=== PATIENT | female | born 1990 | race Caucasian/White ===

== ENCOUNTER 2017-06-25 16:05 | Emergency (ER) | payer OTHER ==
--- NOTE | 2017-06-28 12:08 | ER ---
ADMIT: 06/25/2017 RM/LOC: ER [facility] MR#: [id number] [address] [facility] [address] [place], [place] [id number] NEERAJ ALEXANDER [address] [facility] [address] [place] [address] Emergency Room Report SEX: F AGE: 26 : 1990 DATE: 06/25/2017 HISTORY OF PRESENT ILLNESS: The patient is a 26-year-old presents to emergency room complaining of blurry vision and dizziness. She says she has just gone to the doctor's office, and her vision was fine. She says she could not tell if she had turned the light on or off in the house. No headache at the time. She does have a very extensive history of anxiety and has had multiple testing done in [place], [place]. She is alert and oriented, had no surgeries, takes multivitamins. Denies smoking drugs or alcohol. PHYSICAL EXAMINATION: VITAL SIGNS: Blood pressure is pretty normal. Blood pressure 120/73 with a heart rate of 52, respirations 14, temp is 98.1, and O2 sats 99%. GENERAL: Mildly anxious, alert. Mood and affect are appropriate. NEUROLOGIC: Cranial nerves II through XII are normal. No tongue deviation. No abnormal Romberg. Gait is fine. No weakness. RESPIRATIONS: No distress. CARDIOVASCULAR: Regular in rate and rhythm. ABDOMEN: Nontender. LABORATORY DATA: CBC within normal limits with a hematocrit of 36.8. Chemistry normal. test negative. Blood in the urine 2+. Head CT negative for pathology. CLINICAL IMPRESSION: Dizziness, inner ear dysfunction. Given meclizine, which was slightly helpful for her, so she is going to go home with Valium and evaluation and recommendation with neurologist for rule out migraine headaches. The patient verbalized understanding and will be driven today. She is not going to drive from the hospital. VERONICA Kern / Mateo Arceo MD / saji JOB #: [id number] CC: Mateo Arceo MD, Attending Physician
== END 2017-06-25 21:12 | disposition home or self-care (01) ==
LOC: ER 16:05
DX: R42 Dizziness and giddiness (principal); H57.8 Other specified disorders of eye and adnexa; F41.9 Anxiety disorder, unspecified; Z79.899 Other long term (current) drug therapy